=== PATIENT | male | born 1970 | race American Indian/Alaskan Native ===

== ENCOUNTER 2016-09-01 04:18 | Emergency (ER) | payer SELFPAY ==
[2016-09-01] MEDS ORDERED: NORCO 5/325 PO ONE (07:59)
--- NOTE | 2016-09-01 08:04 | Emergency Department Report ---
HPI - General Chief Complaint: Headache Time Seen by Provider: 09/01/16 07:51 - HPI HPI: Room 3 The patient is a 45-year-old male presenting with chief complaint of headache. The patient states for the past 2 weeks she has had a constant headache and occipital and calvarium region. Patient denies any preceding trauma. Patient denies fever, nausea/vomiting or sore throat. The patient states she normally gets a headache 2-3 times a month but this headache has persisted longer than normal. The patient states she's never been evaluated for his headaches. The patient currently gives his headache a score of 10/10. Location: [see above] Duration: 2 weeks Quality: Headache Severity:10/10 Modifying factors: [see above] Context: [see above] Mode of transportation: The patient is not driving. The patient refused IM/IV medication ED Past Medical Hx - Past Medical History Previous Medical History?: Yes Hx Seizures: Yes (last 2001) - Surgical History Past Surgical History?: Yes Hx Appendectomy: Yes - Family History Family history: no significant - Social History Smoking Status: Current Every Day Smoker (1/2 pack per day) Substance Use Type: None (denies illicit drug use), Alcohol (occasional) - Medications Home Medications: Home Medications Medication Instructions Recorded Confirmed Last Taken Type Butalb/Acetamin/Caff 50-325-40 2 tab PO Q8HR PRN #20 tablet 09/01/16 Unknown Rx [Fioricet] ED Review of Systems ROS: Stated complaint: HEAD PAIN Other details as noted in HPI Comment: All other systems reviewed and negative Constitutional: denies: chills, fever Eyes: denies: eye pain, eye discharge, vision change ENT: denies: ear pain, throat pain Respiratory: denies: cough, shortness of breath, wheezing Cardiovascular: denies: chest pain, palpitations Endocrine: no symptoms reported Gastrointestinal: denies: abdominal pain, nausea, vomiting, diarrhea Genitourinary: denies: urgency, dysuria Musculoskeletal: denies: back pain, joint swelling, arthralgia Skin: denies: rash, lesions Neurological: headache Psychiatric: denies: anxiety, depression Hematological/Lymphatic: denies: easy bleeding, easy bruising Physical Exam - Physical Exam Vital Signs: Vital Signs 09/01/16 04:31 Temperature 98.1 F Pulse Rate 89 Respiratory 18 Rate Blood Pressure 118/78 O2 Sat by Pulse 97 Oximetry Physical Exam: GENERAL: The patient is well-developed well-nourished male lying on stretcher not appearing to be in acute distress. [] HEENT: Normocephalic. Atraumatic. Extraocular motions are intact. Patient has moist mucous membranes. NECK: Supple. No meningitic signs are noted. Trachea midline CHEST/LUNGS: Clear to auscultation. There is no respiratory distress noted. HEART/CARDIOVASCULAR: Regular. There is no tachycardia. There is no gallop rub or murmur. ABDOMEN: Abdomen is soft, nontender. Patient has normal bowel sounds. There is no abdominal distention. SKIN: There is no rash. There is no edema. There is no diaphoresis. NEURO: The patient is awake, alert, and oriented. The patient is cooperative. The patient has no focal neurologic deficits. The patient has normal speech. Cranial nerves II through XII grossly intact, no drift. Moves all extremities well MUSCULOSKELETAL: There is no evidence of acute injury. ED Course Vital Signs 09/01/16 04:31 Temperature 98.1 F Pulse Rate 89 Respiratory 18 Rate Blood Pressure 118/78 O2 Sat by Pulse 97 Oximetry ED Medical Decision Making - Lab Data Result diagrams: 09/01/16 08:03 09/01/16 08:03 Laboratory Tests 09/01/16 09/01/16 08:03 08:03 WBC 7.3 RBC 5.87 H Hgb 18.4 H Hct 53.8 H MCV 92 MCH 31 MCHC 34 RDW 17.0 H Plt Count 132 L Lymph % (Auto) 38.6 H Evans % (Auto) 12.6 H Eos % (Auto) 0.8 Baso % (Auto) 1.0 Lymph # 2.8 Evans # 0.9 H Eos # 0.1 Baso # 0.1 Seg Neutrophils % 47.0 Seg Neutrophils # 3.4 Sodium 136 L Potassium 4.0 Chloride 96.5 L Carbon Dioxide 27 Anion Gap 17 BUN 11 Creatinine 0.8 Estimated GFR > 60 BUN/Creatinine Ratio 13.75 Glucose 99 Calcium 9.2 - Radiology Data Radiology results: report reviewed (CT head), image reviewed (CT head) CT head (read by radiologist)-cranial CT scan within normal limits - Differential Diagnosis headache, migraine, ICH, subdural hematoma Critical care attestation.: If time is entered above; I have spent that time in minutes in the direct care of this critically ill patient, excluding procedure time. ED Disposition Clinical Impression: Headache Disposition: DC-01 TO HOME OR SELFCARE Is pt being admited?: No Does the pt Need Aspirin: No Condition: Stable Instructions: Acute Headache (ED) Additional Instructions: Return to the emergency department immediately should you develop worsening symptoms, fever, inability to tolerate food or liquid or any other concerns. Prescriptions: Butalb/Acetamin/Caff 50-325-40 [Fioricet] 2 tab PO Q8HR PRN #20 tablet PRN Reason: Headache Referrals: MICKY NICHOLSON MD [Staff Physician] - 3-5 Days (Dr. Nicholson is a neurologist. Please follow up with him for further evaluation of her headaches) STONE BELLE MD [Staff Physician] - 3-5 Days (Dr. Belle is a primary doctor. Please follow up with him to be established as a patient) Time of Disposition: 08:43
[2016-09-01 08:20] LABS: Eosinophils % (Auto) 0.8 % (0.0-4.3); Hematocrit 53.8 % (35.5-45.6); Hemoglobin 18.4 gm/dl (11.8-15.2); Mean Corpuscular HGB Conc 34 % (32-34); Mean Corpuscular Hemoglobin 31 pg (28-32); Mean Corpuscular Volume 92 fl (84-94); Red Blood Count 5.87 M/mm3 (3.65-5.03); White Blood Count 7.3 K/mm3 (4.5-11.0)
[2016-09-01 08:24] LABS: Platelet Count 132 K/mm3 (140-440)
--- NOTE | 2016-09-01 08:24 | Cat Scan Report ---
CT HEAD WITHOUT CONTRAST: HISTORY: Headache. Serial contiguous axial images were obtained through the cranium. Intravenous contrast material was not administered. The ventricles are normal in size and appearance. There is no mass effect or midline shift. No areas of abnormally increased or decreased attenuation are seen. No mass lesion is seen. The mastoid air cells and visualized portions of the sinuses are normal. IMPRESSION: Cranial CT scan within normal limits.
[2016-09-01 08:31] LABS: Anion Gap 17 mmol/L; BUN/Creatinine Ratio 13.75; Blood Urea Nitrogen 11 mg/dL (9-20); Calcium 9.2 mg/dL (8.4-10.2); Carbon Dioxide 27 mmol/L (22-30); Chloride 96.5 mmol/L (98-107); Glucose 99 mg/dL (75-100); Sodium 136 mmol/L (137-145)
[2016-09-01 08:55] VITALS: BP 105/70
== END 2016-09-01 08:55 | disposition home or self-care (01) ==
LOC: ED 04:18
DX: R51 Headache (principal); F17.200 Nicotine dependence, unspecified, uncomplicated
CPT/HCPCS: 36415; 70450; 80048; 85025; 99284

== ENCOUNTER 2020-04-23 10:02 | Emergency (ER) | payer SELFPAY ==
--- NOTE | 2020-04-23 10:24 | Emergency Department Report ---
Blank Doc - Documentation Documentation: 49-year-old male that presents with chest pain, shortness of breath with radia tion to left arm. Patient stated is a daily nicotine smoker. 1- This initial assessment/diagnostic orders/clinical plan/ treatment(s) is/are subject to change based on pt's health status, clinical progression and re- assessment by fellow clinical providers in the ED. Further treatment and workup at subsequent clinical provers discretion. Patient/guardians urged not to elope from ED as their condition may be serious if not clinically assessed and managed. 2-cardiac work-up
--- NOTE | 2020-04-23 10:26 | XRay Report ---
CHEST 2 VIEWS INDICATION / CLINICAL INFORMATION: Chest Pain. COMPARISON: None available. FINDINGS: SUPPORT DEVICES: None. HEART / MEDIASTINUM: No significant abnormality. LUNGS / PLEURA: No significant pulmonary or pleural abnormality. No pneumothorax. ADDITIONAL FINDINGS: No significant additional findings. IMPRESSION: 1. No acute findings. Signer Name: Oli Garza MD Signed: 04/23/2020 10:22 AM Workstation Name: [id number]
[2020-04-23 10:51] LABS: Basophils # (Auto) 0.1 K/mm3 (0.0-0.1); Basophils % (Auto) 0.9 % (0.0-1.8); Eosinophils % (Auto) 0.7 % (0.0-4.3); Hematocrit 53.5 % (35.5-45.6); Hemoglobin 17.9 gm/dl (11.8-15.2); Lymphocytes # (Auto) 3.2 K/mm3 (1.2-5.4); Lymphocytes % (Auto) 48.6 % (13.4-35.0); Mean Corpuscular HGB Conc 34 % (32-34); Mean Corpuscular Volume 100 fl (84-94); Monocytes # (Auto) 0.7 K/mm3 (0.0-0.8); Monocytes % (Auto) 11.4 % (0.0-7.3); Platelet Count 160 K/mm3 (140-440); Red Blood Count 5.34 M/mm3 (3.65-5.03); Red Cell Distribution Width 14.4 % (13.2-15.2)
[2020-04-23] MEDS ORDERED: NITROGLYCERIN 2% OINT 1 GM TP ONE (10:54)
--- NOTE | 2020-04-23 10:55 | Emergency Department Report ---
ED General Adult HPI - General Chief complaint: Chest Pain Stated complaint: CHEST PAINS Time Seen by Provider: 04/23/20 10:09 Source: patient Mode of arrival: Ambulatory Limitations: No Limitations - History of Present Illness Initial comments: The patient presents to the emergency department with a chief complaint of left- sided chest pain that started yesterday evening. Patient describes the pain is pressure-like in nature and states it radiates into his left arm. Patient states that chest pain has been continuous and also complains of shortness of breath with exertion only. Patient denies headache, abdominal pain, or headache -: Sudden Location: chest Radiation: extremity Severity scale (0 -10): 6 Quality: other (Pressure) Consistency: constant Improves with: none Worsens with: movement Associated Symptoms: denies other symptoms Treatments Prior to Arrival: none - Related Data Previous Rx's Medication Instructions Recorded Last Taken Type Butalb/Acetamin/Caff 50-325-40 2 tab PO Q8HR PRN #20 tablet 09/01/16 Unknown Rx [Fioricet] Esomeprazole Magnesium [NexIUM] 40 mg PO QDAY #30 capsule. 04/23/20 Unknown Rx Allergies Allergy/AdvReac Type Severity Reaction Status Date / Time No Known Allergies Allergy Verified 09/01/16 04:36 ED Review of Systems ROS: Stated complaint: CHEST PAINS Other details as noted in HPI Constitutional: denies: chills, fever Eyes: denies: eye pain, eye discharge, vision change ENT: denies: ear pain, throat pain Respiratory: denies: cough, shortness of breath, wheezing Cardiovascular: chest pain, dyspnea on exertion. denies: palpitations Endocrine: no symptoms reported Gastrointestinal: denies: abdominal pain, nausea, diarrhea Genitourinary: denies: urgency, dysuria Musculoskeletal: denies: back pain, joint swelling, arthralgia Skin: denies: rash, lesions Neurological: denies: headache, weakness, paresthesias Psychiatric: denies: anxiety, depression Hematological/Lymphatic: denies: easy bleeding, easy bruising ED Past Medical Hx - Past Medical History Previous Medical History?: Yes Hx Seizures: Yes (last 2001) - Surgical History Past Surgical History?: Yes Hx Appendectomy: Yes - Social History Smoking Status: Current Every Day Smoker - Medications Home Medications: Home Medications Medication Instructions Recorded Confirmed Last Taken Type Butalb/Acetamin/Caff 50-325-40 2 tab PO Q8HR PRN #20 tablet 09/01/16 Unknown Rx [Fioricet] Esomeprazole Magnesium [NexIUM] 40 mg PO QDAY #30 capsule. 04/23/20 Unknown Rx ED Physical Exam - General Limitations: No Limitations General appearance: alert, in no apparent distress - Head Head exam: Present: atraumatic, normocephalic - Eye Eye exam: Present: normal appearance, PERRL, EOMI - ENT ENT exam: Present: mucous membranes moist - Neck Neck exam: Present: normal inspection - Respiratory Respiratory exam: Present: normal lung sounds bilaterally. Absent: respiratory distress - Cardiovascular Cardiovascular Exam: Present: regular rate, normal rhythm. Absent: systolic murmur, diastolic murmur, rubs, gallop - GI/Abdominal GI/Abdominal exam: Present: soft, normal bowel sounds. Absent: distended, tenderness - Rectal Rectal exam: Present: deferred - Extremities Exam Extremities exam: Present: normal inspection - Back Exam Back exam: Present: normal inspection - Neurological Exam Neurological exam: Present: alert, oriented X3, CN II-XII intact. Absent: motor sensory deficit - Psychiatric Psychiatric exam: Present: normal affect, normal mood - Skin Skin exam: Present: warm, dry, intact, normal color. Absent: rash ED Course Vital Signs 04/23/20 04/23/20 04/23/20 10:05 10:53 10:56 Temperature 98.4 F Pulse Rate 89 76 Respiratory 16 12 16 Rate Blood Pressure 156/90 Blood Pressure 140/91 [Right] O2 Sat by Pulse 99 98 96 Oximetry 04/23/20 04/23/20 04/23/20 11:01 11:14 11:31 Temperature Pulse Rate 72 77 Respiratory 15 15 Rate Blood Pressure 140/91 140/97 133/82 Blood Pressure [Right] O2 Sat by Pulse 96 98 Oximetry 04/23/20 04/23/20 04/23/20 11:34 12:15 13:00 Temperature Pulse Rate 72 72 Respiratory 16 15 14 Rate Blood Pressure 127/86 140/91 Blood Pressure [Right] O2 Sat by Pulse 98 98 Oximetry 04/23/20 04/23/20 04/23/20 13:16 13:30 13:45 Temperature Pulse Rate 74 68 Respiratory 11 L 13 Rate Blood Pressure 133/82 133/82 135/89 Blood Pressure [Right] O2 Sat by Pulse 98 98 96 Oximetry 04/23/20 04/23/20 04/23/20 14:01 14:15 14:31 Temperature Pulse Rate Respiratory Rate Blood Pressure 140/91 141/86 141/86 Blood Pressure [Right] O2 Sat by Pulse 96 96 97 Oximetry ED Medical Decision Making - Lab Data Result diagrams: 04/23/20 10:19 04/23/20 10:19 Lab Results 04/23/20 04/23/20 04/23/20 Range/Units 10:19 10:19 10:19 WBC 6.6 (4.5-11.0) K/mm3 RBC 5.34 H (3.65-5.03) M/mm3 Hgb 17.9 H (11.8-15.2) gm/dl Hct 53.5 H (35.5-45.6) % MCV 100 H (84-94) fl MCH 34 H (28-32) pg MCHC 34 (32-34) % RDW 14.4 (13.2-15.2) % Plt Count 160 (140-440) K/mm3 Lymph % (Auto) 48.6 H (13.4-35.0) % [place] % (Auto) 11.4 H (0.0-7.3) % Eos % (Auto) 0.7 (0.0-4.3) % Baso % (Auto) 0.9 (0.0-1.8) % Lymph # (Auto) 3.2 (1.2-5.4) K/mm3 [place] # (Auto) 0.7 (0.0-0.8) K/mm3 Eos # (Auto) 0.0 (0.0-0.4) K/mm3 Baso # (Auto) 0.1 (0.0-0.1) K/mm3 Seg Neutrophils % 38.4 L (40.0-70.0) % Seg Neutrophils # 2.5 (1.8-7.7) K/mm3 PT 13.4 (12.2-14.9) Sec. INR 1.04 (0.87-1.13) APTT 25.8 (24.2-36.6) Sec. D-Dimer 412.01 H (0-234) ng/mlDDU Sodium 135 L (137-145) mmol/L Potassium 3.5 L (3.6-5.0) mmol/L Chloride 97.8 L (98-107) mmol/L Carbon Dioxide 26 (22-30) mmol/L Anion Gap 15 mmol/L BUN 7 L (9-20) mg/dL Creatinine 1.0 (0.8-1.3) mg/dL Estimated GFR > 60 ml/min BUN/Creatinine Ratio 7 % Glucose 132 H (75-100) mg/dL Calcium 9.4 (8.4-10.2) mg/dL Total Bilirubin 0.80 (0.1-1.2) mg/dL AST 51 H (5-40) units/L ALT 57 H (7-56) units/L Alkaline Phosphatase 57 (35-129) units/L Troponin T < 0.010 (0.00-0.029) ng/mL NT-Pro-B Natriuret Pep (0-450) pg/mL Total Protein 7.3 (6.3-8.2) g/dL Albumin 4.2 (3.9-5) g/dL Albumin/Globulin Ratio 1.4 % 04/23/20 04/23/20 Range/Units 10:53 14:16 WBC (4.5-11.0) K/mm3 RBC (3.65-5.03) M/mm3 Hgb (11.8-15.2) gm/dl Hct (35.5-45.6) % MCV (84-94) fl MCH (28-32) pg MCHC (32-34) % RDW (13.2-15.2) % Plt Count (140-440) K/mm3 Lymph % (Auto) (13.4-35.0) % [place] % (Auto) (0.0-7.3) % Eos % (Auto) (0.0-4.3) % Baso % (Auto) (0.0-1.8) % Lymph # (Auto) (1.2-5.4) K/mm3 [place] # (Auto) (0.0-0.8) K/mm3 Eos # (Auto) (0.0-0.4) K/mm3 Baso # (Auto) (0.0-0.1) K/mm3 Seg Neutrophils % (40.0-70.0) % Seg Neutrophils # (1.8-7.7) K/mm3 PT (12.2-14.9) Sec. INR (0.87-1.13) APTT (24.2-36.6) Sec. D-Dimer (0-234) ng/mlDDU Sodium (137-145) mmol/L Potassium (3.6-5.0) mmol/L Chloride (98-107) mmol/L Carbon Dioxide (22-30) mmol/L Anion Gap mmol/L BUN (9-20) mg/dL Creatinine (0.8-1.3) mg/dL Estimated GFR ml/min BUN/Creatinine Ratio % Glucose (75-100) mg/dL Calcium (8.4-10.2) mg/dL Total Bilirubin (0.1-1.2) mg/dL AST (5-40) units/L ALT (7-56) units/L Alkaline Phosphatase (35-129) units/L Troponin T < 0.010 (0.00-0.029) ng/mL NT-Pro-B Natriuret Pep 130.6 (0-450) pg/mL Total Protein (6.3-8.2) g/dL Albumin (3.9-5) g/dL Albumin/Globulin Ratio % - EKG Data -: EKG Interpreted by Me EKG shows normal: sinus rhythm Rate: normal - Radiology Data Radiology results: report reviewed - Medical Decision Making Discussed results with patient including results of CT and laboratory values Critical care attestation.: If time is entered above; I have spent that time in minutes in the direct care of this critically ill patient, excluding procedure time. ED Disposition Clinical Impression: Nonspecific chest pain Disposition: TO HOME OR SELFCARE Is pt being admited?: No Does the pt Need Aspirin: No Condition: Stable Instructions: Nonspecific Chest Pain, Adult Additional Instructions: Return if worse Prescriptions: Esomeprazole Magnesium [NexIUM] 40 mg PO QDAY #30 capsule. Referrals: PRIMARY CARE, [Primary Care Provider] - 3-5 Days MILDRED JHAVERI MD [Staff Physician] - 3-5 Days Time of Disposition: 15:01 Heart Score - HEART Score History: Slightly suspicious EKG: Normal Age: 45-65 Risk factors: No known risk factors Troponin: < normal limit HEART Score: 1
[2020-04-23 11:02] LABS: INR 1.04 (0.87-1.13); Partial Thromboplastin Time 25.8 Sec. (24.2-36.6)
[2020-04-23 11:14] LABS: Alanine Aminotransferase 57 units/L (7-56); Albumin 4.2 g/dL (3.9-5); BUN/Creatinine Ratio 7; Blood Urea Nitrogen 7 mg/dL (9-20); Calcium 9.4 mg/dL (8.4-10.2); Hemolysis Index 13
--- NOTE | 2020-04-23 13:26 | Cat Scan Report ---
CTA chest with contrast INDICATION : MAIN. Gauger last chest pain and elevated d-dimer TECHNIQUE: Axial imaging performed through the chest, with contrast bolus timing set to maximize opa cification of the pulmonary arteries. 3-plane MIP reformatted images were obtained. All CT scans at this location are performed using CT dose reduction for ALARA by means of automated exposure control. 100 mL of intravenous contrast administered. COMPARISON: None FINDINGS: Bolus/PTE: Contrast bolus timing is adequate, but there is motion artifact, especially in the lung b ases. No filling defect is present to suggest PTE. Mediastinum: Normal heart size. 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 Ther e are also calcified mediastinal lymph nodes. No pathologic mediastinal adenopathy. Lungs: Lungs are clear. Upper abdomen: Limited imaging of the upper abdomen shows nothing acute. There is hepatic steatosis . Bones: Degenerative changes in the spine with nothing acute. IMPRESSION: Motion limited exam but no PTE identified. Clear lungs. Signer Name: Kenji Forrest MD Signed: 04/23/2020 1:22 PM Workstation Name: [id number]
[2020-04-23 14:39] VITALS: BP 141/86
== END 2020-04-23 15:20 | disposition home or self-care (01) ==
LOC: ED 10:02
DX: R07.89 Other chest pain (principal); F17.200 Nicotine dependence, unspecified, uncomplicated; Z79.899 Other long term (current) drug therapy; Z86.69 Personal history of other diseases of the nervous system and sense organs; Z90.49 Acquired absence of other specified parts of digestive tract
CPT/HCPCS: 36415; 71046; 71275; 80053; 83880; 84484; 85025; 85379; 85610; 85730; 93005; 99284; Q9967